=== PATIENT | female | born 1980 | race American Indian/Alaskan Native ===

== ENCOUNTER 2016-07-13 08:03 | Outpatient (CLI) | payer MEDICAID ==
--- NOTE | 2016-07-13 09:09 | Ultrasound Report ---
Pelvic ultrasound: Amenorrhea. Transabdominal and endovaginal imaging demonstrates an anteverted uterus measuring 5.1 x 6.3 x 10.4 cm. 4 hypoechogenic masses are present in the fundus ranging in size from 9-16 mm. The endometrial is homogeneous of 8.2 mm. No fluid present. The right ovary measures 3.2 cm with a 2.7 cm cyst. There is adjacent cul-de-sac fluid. The left ovary measures 5.4 cm with a 5.3 cm cyst. Impressions: 1. Small multiple uterine fibroadenomas. Normal endometrium. 2. Right ovarian cyst. 3. Cystic enlargement of the left ovary.
== END 2016-07-13 08:04 | disposition home or self-care (01) ==
LOC: US 08:03 → EDBD 08:30
PROVIDERS: ATTEND Hospitalist
DX: D26.9 Other benign neoplasm of uterus, unspecified (principal); N83.201 Unspecified ovarian cyst, right side; N83.202 Unspecified ovarian cyst, left side; N85.4 Malposition of uterus
CPT/HCPCS: 76830; 76856

== ENCOUNTER 2016-10-03 09:13 | Outpatient (CLI) | payer MEDICAID ==
--- NOTE | 2016-10-03 10:34 | Ultrasound Report ---
ULTRASOUND PELVIS COMPLETE - TRANSABDOMINAL AND TRANSVAGINAL: INDICATION: Amenorrhea. COMPARISON: 07/13/2016. FINDINGS: Transabdominal and transvaginal pelvic sonography performed in this patient with stated LMP of 09/17/2016 demonstrates an anteverted uterus with at least 2 slightly hypoechoic fibroids posteriorly, the larger approximately 2.1 x 1.9 x 1.6 cm, endovaginal images 27-29, possibly intramural/submucosal and slightly displacing/effacing the adjacent endometrium. Other fibroid is approximately 1.4 cm, endovaginal image 22. Endometrial stripe thickness approximately 7 mm toward the fundus, endovaginal image 32. Few small nabothian cysts. Small pelvic free fluid. Right ovary is 3 x 1.2 x 2.8 cm. Left ovary is 3.9 x 1.9 x 2.6 cm. Physiologic bilateral follicular cysts noted. CONCLUSION: Uterine fibroids and physiologic bilateral ovaries noted, as described. Please correlate. Thank you for the opportunity to participate in this patient's care.
== END 2016-10-03 09:14 | disposition home or self-care (01) ==
LOC: US 09:13
PROVIDERS: ATTEND Obstetrics & Gynecology Gynecology
DX: D25.9 Leiomyoma of uterus, unspecified (principal); N83.02 Follicular cyst of left ovary; N83.01 Follicular cyst of right ovary; N88.8 Other specified noninflammatory disorders of cervix uteri
CPT/HCPCS: 76830; 76856